=== PATIENT | male | born 1970 | race Caucasian/White ===

== ENCOUNTER 2017-10-16 09:24 | Day surgery (SDC) | payer MEDICAID, OTHER ==
[~2017-10-16 09:24] MED LIST: HYDROmorphone HCL 2 MG/ML VIAL IV PRN; RINGER'S SOLUTION,LACTATED 1,000 ML IV PRN; ceFAZolin SODIUM 1 GM VIAL IV PRN; oxyCODONE HCL/ACETAMINOPHEN 1 TAB TABLET PO PRN
[2017-10-16] MEDS ORDERED: RINGER'S SOLUTION,LACTATED 1,000 ML IV ONE ×2 (10:05→11:00)
--- NOTE | 2017-10-16 13:12 | OR ---
Operative Report - Dictated Report Narrative: Date: 10/16/2017 Physician: Salomón Tipton M.D. Parent Partner: Roc Dumont PA-C Preoperative diagnosis: Right Shoulder full-thickness rotator cuff tear Postoperative diagnosis: Right Shoulder massive rotator cuff tear, SLAP tear, long head of the biceps tendon tear Procedure: Right shoulder arthroscopy with mini open rotator cuff repair, biceps tenotomy, labral debridement Anesthesia: General plus regional Complications: None Estimated blood loss: Minimal Specimens: None Retained implants: [employer] 4.5 mm Healicoil anchors 4, [employer] 4.5 mm footprint anchors 3 Drains: None Indications: Chepe Is a 47 year-old male who has been followed in my clinic with complaints of shoulder pain consistent with full-thickness rotator cuff tear. Physical exam and diagnostic imaging were consistent with his complaints and concern for full thickness rotator cuff tear and concern for possible degenerative SLAP tear. Conservative measures have failed including, but not limited to, passage of time, activity modification, medications, physical therapy/home exercise program, or injections. The risks, benefits, and alternatives were discussed in clinic. The risks being , bleeding, infection, blood clots, nerve, tendon, ligament, blood vessel injury, persistent pain, arthrosis, stiffness, need for prolonged therapy, need for additional procedures, and persistent symptoms. Consent was obtained in the clinic. Procedure: After marking the correct extremity in the preoperative holding area, a timeout was performed in the operating room. IV antibiotics consisting of 2 g of Ancef were administered prior to the procedure. A general followed by regional anesthetic was induced by the nurse teacher hearing impaired. This was in the supine position, then the patient was transitioned to a beachchair position with all bony prominences well-padded, head in neutral, the nonoperative arm well supported, and the legs padded with SCDs in place. The operative shoulder was then prepped and draped in a standard sterile fashion. Preoperatively the shoulder had full passive range of motion, and no instability. After marking out the bony landmarks, saline was infused into the joint through a posterior lateral portal site. A jesus incision was made, and the blunt trocar and cannula was introduced into the shoulder joint. An anterior working portal was placed in the rotator cuff interval using a spinal needle for guidance. Upon initial evaluation, the biceps tendon showed tenosynovitis and a partial thickness longitudinal tear. The middle glenohumeral ligament was intact. Subscapularis tendon demonstrated partial thickness tearing at the very superior aspect of the tendon as well as some intrasubstance tendinopathy. The glenoid showed grade 2 chondral change with focal full-thickness cartilage loss at the anterior inferior aspect approximately 10 x 12 mm. The humeral head articular surface showed grade 1 chondral changes. The anterior labrum was partially torn but still attached to the glenoid. The superior labrum demonstrated a degenerative type II tear. The pouch was of normal caliber with a small cartilaginous loose body. The posterior labrum was intact. The supraspinatus tendon was completely torn and retracted medially approximately 2 cm. The infraspinatus tendon was completely torn and retracted approximately 2 cm. The teres was intact. Based on the arthroscopic findings, as well as exam and radiographic findings, it was elected to proceed with biceps tenotomy, labral debridement, and a mini open rotator cuff repair. A 4.0 mm shaver was used 2 debride the superior anterior labrum as well as the loose cartilage flaps of the anterior-inferior glenoid. Arthroscopic scissors were used to tenotomize the biceps at the bicipital anchor. The shaver was then used to debride the residual stump. Attention was then turned to the subacromial space. Subacromial bursectomy was performed utilizing the prior portals. The coracoacromial ligament was intact. The bursal side of the rotator cuff demonstrated the aforementioned massive rotator cuff tear. The acromial arch demonstrated normal morphology with no anterior hooking and no significant evidence of subacromial impingement. At this point we felt we had addressed everything we could arthroscopically and turned our attention to our mini open rotator cuff repair. Fluid was evacuated from the joint and all arthroscopic instruments and cannulas were removed. A longitudinal incision centered over the previously identified rotator cuff tear was made just off the edge of the acromion. This was approximately 5 centimeters in length. The deltoid fascia was split sharply in line with its fibers, and blunt dissection was carried through the deltoid muscle. Any remaining subacromial bursal tissue was debrided in order to expose the underlying rotator cuff tear. The rotator cuff tear demonstrated a massive retracted crescent-type tear involving the entirety of the supraspinatus and the majority of the infraspinatus tendon. The tuberosity was debrided of its soft tissues producing a bleeding bed for the tendon to be secured to. Four 4.5 mm PEEK helicoil anchors were placed just off the articular surface of the humeral head. A series of horizontal mattress sutures were placed at the prepared edge of the rotator cuff. This allowed for a tension-free return of the tendon to the greater tuberosity. The sutures were then passed longitudinally into three 4.5 mm PEEK footprint anchors. This was performed using a suture bridge technique. This gave good overall compression to the rotator cuff at the insertion site. The shoulders place a range of motion and had no lift off of the repair site as well as no crepitance or signs of impingement. Full passive range of motion was able to be obtained. Once it was felt that the rotator cuff was adequately repaired, the wounds were thoroughly irrigated. 0 Vicryl was utilized in order to repair the deltoid fascia. 3-0 Vicryl was placed in the subcutaneous tissue. The rotator cuff incision as well as the portal sites were closed with interrupted nylon. Dressings consisting of Xeroform, 4 x 4, ABD, soft roll, and tape were applied. All sponge, needle, blade, and instrument counts were correct prior to closing the wounds. The patient was awoken and transferred to the postanesthesia care unit in stable condition.
[2017-10-16] MEDS ORDERED: HYDROmorphone HCL 1 MG/ML DISP.SYRIN IV PRN (13:38)
--- NOTE | 2017-10-16 14:21 | OR ---
Anesthesia Procedure Note - Anesthesia Procedure Note Date of Service: 10/16/17 Narrative: Vital Signs - Last Taken Temp 36.2 C L 10/16/17 13:48 Pulse 79 10/16/17 14:10 Resp 20 10/16/17 14:10 BP 116/83 10/16/17 14:10 Pulse Ox 93 10/16/17 14:10 O2 Oxygen Delivery Method Nasal Cannula 10/16/17 14:15 ANESTHESIA PROCEDURE NOTE Date of Procedure: 10/16/2017 Time of procedure: 1415. Performed by: MARCELINO Saleem CRNA, MSN [employer] Teacher: Karolina De La Rosa RN. Preprocedure diagnosis: Shoulder pain status post right rotator cuff repair. Post procedure diagnosis: Same. Procedure: Right Interscalene nerve block. Indications: Post right rotator cuff repair pain relief. Findings: See below. Details of the procedure: The patient was in PACU complaining of pain and placed in semi-Fowlers position. The patient was prepped with chlorhexidine and using blind tactile approach the interscalene segment of the brachial plexus was identified and lidocaine 1% was infiltrated to the skin of the intended injection site. A 2inch stimulator needle was used to identify a right shoulder response. Once the stimulator response was effective at less than 0.5 mV and greater than 0.3 mV the bracheal plexus nerves at this level, 30 mL bupivacaine 0.25% with 1-200,000 epinephrine was injected. Although the patient does shortly after the injection he periodically awakes complaining of pain. At this point it would be advised that we attempt to transition him on to IV and oral pain medication. EBL: 0 Fluids: N/A. Specimen: N/A. Post procedure condition: The patient tolerated the procedure well. No complications were noted. Thank you for this consultation. Paramjit Marks CRNA, SPINNING MACHINE TENDER, MSN
[2017-10-16 18:22] VITALS: BP 126/72
--- NOTE | 2017-10-17 08:11 | OR ---
Anesthesia Procedure Note - Anesthesia Procedure Note Narrative: Vital Signs - Last Taken Temp 36.5 C 10/16/17 14:30 Pulse 86 10/16/17 16:15 Resp 20 10/16/17 16:15 BP 126/72 10/16/17 16:15 Pulse Ox 94 10/16/17 16:15 O2 Oxygen Delivery Method Room Air 10/17/17 08:07 ANESTHESIA PROCEDURE NOTE Date of procedure: 10/16/2017. Time of procedure: 1020. Performed by: Kevin Cedillo CRNA Labor Expediter: Beryl Guillaume RN . Preprocedure diagnosis: Right rotator cuff tear. Need for postoperative analgesia.. Post procedure diagnosis: Same. Procedure: Ultrasound-guided right interscalene nerve block Indications: Postoperative analgesia. Findings: Patient brought to operating room #3 and placed in a semi-Pretty's position. Patient was sedated. The right-sided patient's neck was prepped with ChloraPrep. Ultrasound was used to identify brachioplexus between the anterior and median scalene muscles in the interscalene groove. A 22-gauge 2 inch Stimuplex regional block needle was advanced under ultrasound guidance along with use of a peripheral nerve stimulator. Muscle twitch was obtained at 0.9 mA. Amperage was decreased and muscle twitch disappeared at 0.45 mA. A total of 40 mL 0.5% Marcaine with epinephrine 1 200,000 was injected around the nerves in the brachioplexus. Adequate spread of local anesthetic was noted. Regional block needle was removed intact. EBL: Minimal. Fluids: N/A. Specimen: N/A. Post procedure condition: The patient tolerated the procedure well. No complications were noted. Thank you for this consultation Kevin Cedillo CRNA
== END 2017-10-16 09:25 | disposition home or self-care (01) ==
LOC: AMB 09:24
PROVIDERS: ATTEND Orthopaedic Surgery
PROC: 0LQ10ZZ Repair Right Shoulder Tendon, Open Approach (ICD-10-PCS; 2017-10-16)
PROC: 0RHJ04Z Insertion of Internal Fixation Device into Right Shoulder Joint, Open Approach (ICD-10-PCS; 2017-10-16)
PROC: 3E0T3BZ Introduction of Anesthetic Agent into Peripheral Nerves and Plexi, Percutaneous Approach (ICD-10-PCS; 2017-10-16)
PROC: 0RBJ4ZZ Excision of Right Shoulder Joint, Percutaneous Endoscopic Approach (ICD-10-PCS; principal; 2017-10-16 10:00)
DX: M75.101 Unspecified rotator cuff tear or rupture of right shoulder, not specified as traumatic (principal); S46.111A Strain of muscle, fascia and tendon of long head of biceps, right arm, initial encounter; S43.431A Superior glenoid labrum lesion of right shoulder, initial encounter; E03.9 Hypothyroidism, unspecified; F17.200 Nicotine dependence, unspecified, uncomplicated; Z68.42 Body mass index [BMI] 45.0-49.9, adult